=== PATIENT | female | born 1990 | race Hispanic/Latino ===

== ENCOUNTER 2023-04-28 12:30 | Emergency (ER) | payer SELFPAY ==
[2023-04-28] MEDS ORDERED: Boostrix 0.5 ML (Tdap) VIAL (>/=7 yrs of age) ONE (12:54)
[2023-04-28] MEDS ORDERED: Lidocaine 1% w/Epinephrine 1:200K 30 ML VIAL ONE (12:55)
== END 2023-04-28 13:48 | disposition home or self-care (01) ==
LOC: CSHERS 12:30
DX: S61.412A Laceration without foreign body of left hand, initial encounter (principal); Z23 Encounter for immunization; W26.0XXA Contact with knife, initial encounter
CPT/HCPCS: 12001; 90471; 90715

== ENCOUNTER 2023-05-08 17:12 | Emergency (ER) | payer SELFPAY | END 2023-05-08 17:36 | disposition home or self-care (01) | LOC: CSHERS 17:12 | DX: S61.412D Laceration without foreign body of left hand, subsequent encounter (principal); X58.XXXD Exposure to other specified factors, subsequent encounter ==